=== PATIENT | male | born 1960 | race Caucasian/White ===

== ENCOUNTER 2016-09-05 09:00 | Emergency (ER) | payer OTHER ==
[~2016-09-05 09:00] MED LIST: ADVAIR 2501 DISK W/D; ADVAIR 5001 DISK W/D INH; ALBUTEROL SULF8.5 GM IH; ALBUTEROL0.83 MG/ML INH; ALVESCO6.1 G1 INH; BIAXIN500 MG PO; GLUCOPHAGE500 M3 PO; GLUCOPHAGE500 MG PO; IBUPAIN-200200 MG PO; NEBULIZER; NORCO 5/325 TAB1 TAB PO; PREDNISONE10 MG; PREDNISONE20 MG PO; PROAIR HFA8.5 GM INH; PROAIR INHALER; TYLENOL325 MG PO; VENTOLIN17 GM; XOLAIR150 MG/1.2 SC
[2016-09-05 09:27] LABS: BASO % 0.4 % (0-2); EOS % 2.3 % (0-7); EOSINOPHIL ABSOLUTE COUNT 0.2 tho/cmm (0.0-0.7); HCT-HEMATOCRIT 43.4 % (36.0-53.5); HGB-HEMOGLOBIN 15.2 gm/dl (13.5-17.0); IMMATURE GRANULOCYTES ABSOLUTE 0.02 tho/cmm (0-0.03); IMMATURE GRANULOCYTES PERCENT 0.2 % (0-0.3); LYMPH % 17.8 % (20-45); LYMPH ABSOLUTE COUNT 1.5 tho/cmm (0.8-4.5); MCH (MEAN CORPUSCULAR HGB) 27.3 pg (28.0-32.0); MCV (MEAN CELL VOLUME) 78.1 fl (82.0-96.0); MEAN PLATELET VOLUME 8.9 cmc (9.4-12.4); MONO % 4.9 % (0-12); MONOCYTE ABSOLUTE COUNT 0.4 tho/cmm (0.0-1.2); NEUTROPHIL ABSOLUTE COUNT 6.3 tho/cmm (1.6-8.0); NEUTROPHIL-AUTOMATED 6.3 tho/cmm (1.6-8.0); NEUTROPHILS % 74.4 % (40-80); PLATELET COUNT 242 tho/cmm (150-450); RED BLOOD COUNT 5.56 mil/cmm (4.40-5.70); RED CELL DISTRIBUTION WIDTH 12.6 % (12.4-16.4); WHITE BLOOD COUNT 8.4 tho/cmm (4.0-10.0)
[2016-09-05] MEDS ORDERED: ZESTRIL2.5 M3 PO (09:35)
[2016-09-05] MEDS ORDERED: PROTONIX40 M2 PO (09:35)
[2016-09-05] MEDS ORDERED: BRILINTA90 M1 PO (09:36)
[2016-09-05] MEDS ORDERED: ULTRAM50 M1 PO (09:37)
[2016-09-05] MEDS ORDERED: ASPIRIN81 M1 PO (09:38)
[2016-09-05] MEDS ORDERED: COREG6.25 M1 PO (09:39)
[2016-09-05] MEDS ORDERED: LIPITOR40 M1 PO (09:39)
[2016-09-05 09:43] LABS: ANION GAP 15 mmol/L (0-20); BLOOD UREA NITROGEN 20 mg/dl (6-24); CALCIUM 9.1 mg/dl (8.5-10.5); CARBON DIOXIDE-VENOUS 22 mmol/L (22-32); CHLORIDE 104 mmol/l (96-110); CREATININE 0.86 mg/dl (0.60-1.30); GLUCOSE 196 mg/dL (70-110); POTASSIUM 4.2 mmol/L (3.7-5.1); SODIUM 137 mmol/L (135-145); eGFR VALUE FOR BLACK >90 mL/Min
== END 2016-09-05 18:29 ==
LOC: EDMED 09:00
PROVIDERS: Emergency Medicine
DX: R07.2 Precordial pain (principal); I25.10 Atherosclerotic heart disease of native coronary artery without angina pectoris; E11.9 Type 2 diabetes mellitus without complications; J45.909 Unspecified asthma, uncomplicated; Z85.038 Personal history of other malignant neoplasm of large intestine; Z95.5 Presence of coronary angioplasty implant and graft; Z79.51 Long term (current) use of inhaled steroids; Z79.82 Long term (current) use of aspirin; Z79.899 Other long term (current) drug therapy

== ENCOUNTER 2016-10-11 | Emergency (ER) | payer OTHER ==
[~2016-10-11] MED LIST changes: +ASPIRIN81 M1 PO; +BRILINTA90 M1 PO; +COREG6.25 M1 PO; +LIPITOR40 M1 PO; +PROTONIX40 M2 PO; +ULTRAM50 M1 PO; +ZESTRIL2.5 M3 PO
[2016-10-11] MEDS ORDERED: ALBUTEROL2.5 MG/3 M INH (07:36)
== END 2016-10-11 07:50 ==
DX: J45.909 Unspecified asthma, uncomplicated (principal); I25.10 Atherosclerotic heart disease of native coronary artery without angina pectoris; I25.2 Old myocardial infarction; E11.9 Type 2 diabetes mellitus without complications; Z87.442 Personal history of urinary calculi; Z85.038 Personal history of other malignant neoplasm of large intestine; Z95.5 Presence of coronary angioplasty implant and graft; Z79.51 Long term (current) use of inhaled steroids; Z79.82 Long term (current) use of aspirin; Z79.899 Other long term (current) drug therapy

== ENCOUNTER 2016-10-30 08:23 | Emergency (ER) | payer OTHER ==
[~2016-10-30 08:23] MED LIST changes: +ALBUTEROL2.5 MG/3 M INH
[2016-10-30 08:37] LABS: BASO % 0.4 % (0-2); EOS % 2.7 % (0-7); EOSINOPHIL ABSOLUTE COUNT 0.2 tho/cmm (0.0-0.7); HCT-HEMATOCRIT 41.9 % (36.0-53.5); IMMATURE GRANULOCYTES ABSOLUTE 0.01 tho/cmm (0-0.03); IMMATURE GRANULOCYTES PERCENT 0.1 % (0-0.3); LYMPH % 26.2 % (20-45); LYMPH ABSOLUTE COUNT 1.9 tho/cmm (0.8-4.5); MCH (MEAN CORPUSCULAR HGB) 27.1 pg (28.0-32.0); MCHC MEAN CORPUSCULAR HGB CONC 33.4 % (32.0-36.0); MEAN PLATELET VOLUME 8.8 cmc (9.4-12.4); MONO % 5.7 % (0-12); MONOCYTE ABSOLUTE COUNT 0.4 tho/cmm (0.0-1.2); NEUTROPHIL ABSOLUTE COUNT 4.6 tho/cmm (1.6-8.0); NEUTROPHIL-AUTOMATED 4.6 tho/cmm (1.6-8.0); NEUTROPHILS % 64.9 % (40-80); PLATELET COUNT 195 tho/cmm (150-450); RED BLOOD COUNT 5.17 mil/cmm (4.40-5.70); RED CELL DISTRIBUTION WIDTH 13.7 % (12.4-16.4); WHITE BLOOD COUNT 7.1 tho/cmm (4.0-10.0)
[2016-10-30 08:50] LABS: ANION GAP 14 mmol/L (0-20); BLOOD UREA NITROGEN 16 mg/dl (6-24); CARBON DIOXIDE-VENOUS 26 mmol/L (22-32); CHLORIDE 102 mmol/l (96-110); CREATININE 0.88 mg/dl (0.60-1.30); GLUCOSE 152 mg/dL (70-110); SODIUM 138 mmol/L (135-145); eGFR VALUE FOR BLACK >90 mL/Min
[2016-10-30 08:56] LABS: POTASSIUM 4.2 mmol/L (3.7-5.1)
[2016-10-30] MEDS ORDERED: BISOPROLOL FUMAR5 M1 PO (09:23)
[2016-10-30] MEDS ORDERED: PLAVIX75 M1 PO (09:23)
[2016-10-30] MEDS ORDERED: ALBUTEROL2.5 MG/3 M INH (09:24)
[2016-10-30] MEDS ORDERED: SYMBICORT 160-1 PUFF INH (09:25)
[2016-10-30] MEDS ORDERED: ULTRAM50 M1 PO (09:26)
== END 2016-10-30 11:04 ==
LOC: EDMED 08:23
PROVIDERS: Emergency Medicine
DX: J45.909 Unspecified asthma, uncomplicated (principal); I25.5 Ischemic cardiomyopathy; I25.10 Atherosclerotic heart disease of native coronary artery without angina pectoris; E11.9 Type 2 diabetes mellitus without complications; Z85.038 Personal history of other malignant neoplasm of large intestine; Z95.5 Presence of coronary angioplasty implant and graft; Z88.6 Allergy status to analgesic agent; Z88.2 Allergy status to sulfonamides; Z79.82 Long term (current) use of aspirin; Z79.899 Other long term (current) drug therapy; Z79.02 Long term (current) use of antithrombotics/antiplatelets; Z79.84 Long term (current) use of oral hypoglycemic drugs